=== PATIENT | male | born 1995 | race Two or more races ===

== ENCOUNTER 2017-06-16 19:40 | Emergency (ER) | payer OTHER ==
[~2017-06-16] VITALS: Ht 190.5 cm; Wt 78.0 kg
[2017-06-16 19:52] VITALS: BP 113/74
[2017-06-16] MEDS ORDERED: ACETAMINOPHEN 325 MG TABLET ONE (20:12)
[2017-06-16] MEDS ORDERED: ACETAMINOPHEN 325 MG TABLET PO ONE (20:30)
[2017-06-16 20:57] LABS: RAPID INFLUENZA A Negative (Negative); RAPID INFLUENZA B POSITIVE (Negative)
[2017-06-16] MEDS ORDERED: OSELTAMIVIR 75 MG CAPSULE PO ONE (21:30)
== END 2017-06-16 21:28 | disposition home or self-care (01) ==
LOC: ED 21:10
DX: J45.41 Moderate persistent asthma with (acute) exacerbation (principal); J11.1 Influenza due to unidentified influenza virus with other respiratory manifestations; F17.200 Nicotine dependence, unspecified, uncomplicated; F17.210 Nicotine dependence, cigarettes, uncomplicated
CPT/HCPCS: 71046; 87400; 99285

== ENCOUNTER 2018-03-07 18:26 | Emergency (ER) | payer MEDICAID ==
[~2018-03-07] VITALS: Ht 190.5 cm; Wt 88.4 kg
[2018-03-07 18:35] VITALS: BP 100/66
[2018-03-07] MEDS ORDERED: ALBU8.5H8 INH (18:58)
== END 2018-03-07 19:19 | disposition home or self-care (01) ==
LOC: ED 18:50
DX: J45.41 Moderate persistent asthma with (acute) exacerbation (principal); F17.200 Nicotine dependence, unspecified, uncomplicated
CPT/HCPCS: 71046; 99284; J7512